=== PATIENT | male | born 1990 | race Caucasian/White ===

== ENCOUNTER → 2020-06-11 12:51 | Outpatient (CLI) | payer OTHER, SELFPAY ==
--- NOTE | 2020-06-11 13:00 | MRI_ITS ---
STUDY: MRI LEFT SHOULDER REASON FOR EXAM: Male, 29 years old. LEFT shoulder arthrogram. LEFT shoulder dislocation x 3 TECHNIQUE: Standardized fat and water weighted pulse sequences were obtained in all 3 orthogonal planes. Images were obtained after the ministration of 10 mL intra-articular of the saline with 0.08 mL of Dotarem COMPARISON: None. FINDINGS: Normal supraspinatus tendon. Normal infraspinatus tendon. Normal subscapularis tendon. Normal teres minor tendon. Normal supraspinatus muscle. Normal infraspinatus muscle. Normal subscapularis muscle. Normal teres minor muscle. Normal glenohumeral articulation. Chronic Hill-Sachs deformity of the superior humeral head consistent with prior anterior glenohumeral joint dislocation. Normal biceps labral complex. Normal intracapsular long biceps tendon. Avulsion of the anterior inferior labrum which remains attached to the inferior glenohumeral ligament with periosteal sleeve avulsion consistent with a Perthes lesion. Normal capsulo- ligamentous complex. Normal rotator interval. Normal acromioclavicular articulation. There is a Type II morphology (curved), with a neutral orientation. There is no subacromial-subdeltoid bursal fluid. Normal visualized coracohumeral and coracoacromial ligaments. Normal quadrilateral space. Normal axillary space. Normal deltoid muscle. Normal trapezius muscle. 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 Electronically Signed: Randy Santamaria MD at 18:09 EDT Tel , Service support ,
--- NOTE | 2020-06-11 13:10 | RAD_ITS ---
CLINICAL HISTORY: Male, 29 years old. Left shoulder pain. PROCEDURE: ARTHROGRAM - LEFT SHOULDER CONSENT: The procedure as well as the benefits and possible complications including infection and bleeding were explained to the patient. Informed consent was obtained. FLUOROSCOPY TIME (if supplied): (40 seconds) minutes/seconds. Injection Information: 10 cc of dilute Dotarem Number of images obtained: 4 TECHNIQUE: (All elements of maximal sterile barrier technique followed, including US elements as applicable) The patient was in the supine position. The overlying skin was prepped and draped in usual sterile fashion. Following local anesthesia, under direct fluoroscopic guidance, a 22-gauge spinal needle was placed into the left shoulder. 2 cc of ISOVUE-300 was injected for confirmation. Following this, 10 cc of dilute MRI contrast was injected. The patient tolerated procedure well. RAD/Arthrogram Shoulder IMPRESSION: Successful right shoulder arthrogram for MRI examination. Electronically Signed: Macario Gaines, at 14:51 EDT , Service support ,
== END ==
PROVIDERS: PCP Internal Medicine; Referring Provider Specialist; Visit Provider Specialist
DX: S43.015A Anterior dislocation of left humerus, initial encounter (principal)
CPT/HCPCS: 23350; 73040; 73222; A9575; Q9967

== ENCOUNTER → 2020-08-27 09:21 | Outpatient (CLI) | payer OTHER, MEDICAID, SELFPAY | PROVIDERS: PCP Internal Medicine; Referring Provider Orthopaedic Surgery; Visit Provider Orthopaedic Surgery | DX: Z11.59 Encounter for screening for other viral diseases (principal) | CPT/HCPCS: 87635; C9803; U0005; U0003 ==

== ENCOUNTER 2025-04-29 10:08 | Emergency (ER) | payer OTHER, SELFPAY ==
[2025-04-29 10:08] VITALS: BP 154/96; PULSE 87; RESP 16; TEMP 36.6; O2SAT 100; BMI 29.2
--- NOTE | 2025-04-29 10:32 | EX.ED.UPPERE ---
HPI History of Present Illness HPI Narrative: Patient presents with left shoulder pain that began today. Patient states he was standing at work and was trying to pull himself up. Patient states he felt a pop in his left shoulder. Patient states he has a history of left shoulder dislocation. Patient states he has an anchor and pin in his left shoulder from prior surgery. Patient describes his pain as a popping sensation. Patient states it is worse with movement. Patient dates that it is better with rest. Patient denies any paresthesias or weakness. Patient denies any other injuries. Chief Complaint: Dislocation Informant: patient Occured/Mechanism Mechanism/Context: Yes work related Onset/Context/Timing Onset: Today Context: Sudden Onset Timing: Continuous Quality of Pain: - (Popping) Location: Left shoulder Worsened by: Movement Relieved by: Rest Associated Symptoms Associated Symptoms: Negative for Parasthesia, Weakness or Loss of Funtion PFSH PFSH Home Medications ?Medication ?Instructions ?Recorded ?Last Taken ?Type NK 04/29/25 Unknown History Allergy/AdvReac Type Severity Reaction Status Date / Time No Known Allergies Allergy Verified 04/29/25 10:34 Surgical History (Updated 04/29/25 @ 10:[address] Rashi Sarabia DO) Hx of shoulder surgery Social History Smoking Status: Never smoker ROS ROS ED Constitutional Constitutional ED: Denies chills or fever(s) Eyes Eyes: Denies blurry vision or change in vision ENT ENT ED: Denies rhinorrhea or sore throat Cardiovascular Cardiovascular: Denies chest pain or palpitations Respiratory/Chest Respiratory/Chest: Denies cough or dyspnea Gastrointestinal Gastrointestinal: Denies nausea or vomiting Genitourinary Genitourinary ED: Denies dysuria or hematuria Musculoskeletal Musculoskeletal: Denies back pain or neck pain Integumentary Denies abscess or rash Neurologic Neurologic: Denies headache(s) or weakness Allergic/Immunologic Allergic/Immunologic ED: Denies mouth swelling or urticaria EXAM Physical Exam Const Vital Signs: 04/29/25 10:08 Temperature 97.9 F Temperature Source Temporal Pulse Rate 87 Respiratory Rate 16 Blood Pressure 154/96 H Blood Pressure Mean 115 Pulse Ox 100 Oxygen Delivery Method Room Air Positive well nourished and well developed General Appearance ED: well developed and NAD HEENT Reports moist mucous membranes normocephalic and atraumatic Neck full ROM and supple Extremity Extremity Narrative: There is tenderness over the left shoulder. There is a sulcus sign noted. Range of motion was limited in all motions of the left shoulder secondary to pain. Strength is 5/5 in the radial, median, and ulnar areas. Sensation was intact to light touch in the radial, median, ulnar, and axillary areas. Radial pulses are equal bilaterally. Neuro oriented x3, CN's II-XII intact bilaterally, moves all extremities, no focal motor deficits and no sensory deficits noted Sensorium / Orientation: alert Motor Exam: strength 5/5 throughout Psych mental status grossly normal MDM MDM MDM Narrative Medical decision making narrative: Differential diagnosis includes dislocation, fracture, and contusion. X-rays of the left shoulder will be obtained to assess for dislocation and fracture. Radiography Diagnostic Testing: X-rays of the left shoulder were obtained. There are 4 views. On my independent interpretation, there is anterior-inferior dislocation of the glenohumeral joint. There is no acute fracture noted. Radiologist also interpreted the x-rays and agrees. Treatment and Re-Evaluation Narrative: Patient was placed on continuous cardiac and pulse oximeter monitors. I advised the patient of the need for sedation and reduction. However, prior to sedation, the patient was able to reduce his shoulder himself. He has good range of motion on reevaluation. There is no obvious deformity noted. Patient was given a sling and swath. Patient was instructed to follow-up with his primary care physician in 5 to 7 days. Patient understood and was agreeable with the plan. All questions were answered. Discharge Plan Triage Chief Complaint: Dislocation ED Provider: Rashi Sarabia Dx/Rx/DC Orders Clinical Impression: Dislocation of left shoulder joint, Elevated blood pressure reading Instructions: ED Dislocation: Shoulder (Reduced) Prescriptions: No Action NK Primary Care Provider: Tahira Reno Referrals: Tahira Reno DO [Primary Care Provider] - 5-7 Days Print Language: Mongolian Disposition Disposition: Home, Self Care
--- NOTE | 2025-04-29 11:04 | RAD_ITS ---
PROCEDURE: SHOULDER MIN 2 VIEWS 04/29/2025 REASON FOR EXAM: INJURY/PAIN TECHNIQUE: Procedure Code: RADSH Modality: DX Procedure: SHOULDER MIN 2 VIEWS Laterality: Left COMPARISON: Left shoulder study 06/11/2020 RAD/Shoulder min 2 Views IMPRESSION: Anterior-inferior dislocation of the left glenohumeral joint is seen. No fracture site is clearly identified at this time. The left acromioclavicular joint is unremarkable in appearance. Reading Location: [place] [id number]
[2025-04-29 11:39] VITALS: BP 126/80; PULSE 59; RESP 17; O2SAT 100
--- NOTE | 2025-04-29 12:18 | ED.RN ---
Patient hits call light requesting a nurse. Upon arrival, patient states my shoulder is back in place. Rn asks patient if he can move his fingers and raise his left arm above his shoulder. patient does without pain or discomfort Dr. Sarabia notified.
[2025-04-29 12:20] VITALS: BP 123/85; PULSE 59
[2025-04-29 13:06] VITALS: BP 123/85; PULSE 59; RESP 17; TEMP 36.6; O2SAT 100
== END 2025-04-29 13:07 | disposition home or self-care (01) ==
PROVIDERS: Emergency Provider Emergency Medicine; PCP Internal Medicine; Visit Provider Emergency Medicine
DX: S43.085A Other dislocation of left shoulder joint, initial encounter (principal); Y99.0 Civilian activity done for income or pay; R03.0 Elevated blood-pressure reading, without diagnosis of hypertension; X50.9XXA Other and unspecified overexertion or strenuous movements or postures, initial encounter; Y92.89 Other specified places as the place of occurrence of the external cause
CPT/HCPCS: 73030; 96374; 99284; A4216